=== PATIENT | male | born 1960 | race Caucasian/White ===

== ENCOUNTER 2016-10-30 09:19 | Emergency (ER) | payer OTHER, BC ==
[~2016-10-30 09:19] MED LIST: LOSARTAN POTASS50 MG PO; VITAMIN D-35000 UNIT PO
--- NOTE | 2016-10-30 10:30 | DIAGNOSTIC IMAGING REPORT ---
PROCEDURE: XR THORACIC SPINE 3 VIEWS INDICATION: TRAUMA/INJURY TECHNIQUE: Three views. COMPARISON: None. FINDINGS: Osseous structures and disc spaces are normal. No evidence of an acute process or fracture. IMPRESSION: 1. Negative thoracic spine.
--- NOTE | 2016-10-30 11:28 | DIAGNOSTIC IMAGING REPORT ---
PROCEDURE: XR WRIST MIN 3 VIEWS - LEFT INDICATION: TRAUMA/INJURY TECHNIQUE: Three views of the left wrist. COMPARISON: None. FINDINGS: There is a fracture of the triquetrum. This is only seen on the lateral view. This appears acute with sharp cortical margins. IMPRESSION: 1. Triquetral fracture left wrist 2. Results discussed with Dr. Mei at 11:20 a.m.
--- NOTE | 2016-10-30 11:33 | ED CLINICAL REPORT ---
Clinical Report - Physicians/Mid Levels [facility] [address] [place] [address] 10/30/2016 9:22 Patient: DENVER MIGUEL Time Seen: 09:27; initial patient contact. Arrived- By private vehicle. Historian- patient. HISTORY OF PRESENT ILLNESS Chief Complaint: FALL. Location of injuries- upper back and left wrist. The injury occurred last night. Occurred at work. Fell 2-3 feet while climbing and landed on a hard surface; slipped. The patient complains of mild pain. No blow to the head, neck pain or loss of consciousness. Not dazed. REVIEW OF SYSTEMS No numbness, dizziness, difficulty breathing, nausea or abdominal pain. No laceration, vomiting or urinary problems. He has had back pain but no pain on weight bearing. He has had mild joint pain with swelling, involving the left wrist. All systems otherwise negative, except as recorded above. PAST HISTORY Muscle Tear. Chronic lymphoid leukemia, disease. Hypertension. ADDITIONAL SURGERIES: Adenoidectomy. Cholecystectomy. Colonoscopy. Tonsillectomy. Medications: AmLODIPine Besylate Oral. Losartan Potassium Oral (Tablet 50 mg) 1 tablet, daily. Allergies: No Known Drug Allergy. SOCIAL HISTORY Current every day smoker. No alcohol use or drug use. ADDITIONAL NOTES The nursing notes have been reviewed. PHYSICAL EXAM Vital Signs: 10/30/2016 09:28 BP: 159/74. HR: 76. RR: 20. O2 saturation: 97%. Temp: 98.7 F. Pain level now: 8/10. Have been reviewed. Hypertensive. Heart rate normal. Respiratory rate normal. Temperature normal. Oxygen saturation normal. Appearance: Alert. Oriented X3. No acute distress. Head: Head non-tender. Neck: Painless ROM. Non-tender. CVS: Heart sounds normal. Rate normal. Rhythm normal. Respiratory: Breath sounds normal. Chest nontender. Abdomen: No visible injury. Soft and nontender. Bowel sounds normal. Back: Moderate vertebral point tenderness over the upper thoracic spine. Moderate vertebral tenderness in the right upper and left upper thoracic area. Skin: The patient has a single medium superficial abrasion on the back. Extremities: Dorsal left hand: moderate tenderness of the proximal aspect of the dorsal hand. Neurovascular intact distally. No erythema, swelling or deformity. No limitation of extension. Pelvis stable. No lower extremity edema. Neuro: Oriented X 3. No motor deficit. No sensory deficit. LABS, X-RAYS, AND EKG T-Spine X-rays: Normal anterior contour line and posterior contour line. No fracture present. No subluxation present. Soft tissues normal. No bony lesion. Spinous processes aligned. Normal disc spaces. Views: AP, lateral and swimmer's view. Technique: good. The X-rays were independently viewed by me, interpreted by the radiologist and discussed with the radiologist. Prior films were not available for comparison. Lt Wrist X-ray: (Triquetrium Fx). Views: AP, lateral and oblique. Technique: good. The X-rays were independently viewed by me, interpreted by the radiologist and contemporaneously by me and discussed with the radiologist. Prior films were not available for comparison. PROGRESS AND PROCEDURES Disposition: Discharged home in good and improved condition. Condition: good. CLINICAL IMPRESSION Closed displaced transverse and triquetrum fracture of the left wrist. No angulated fracture of the wrist. No fracture of the distal radius or ulna. Single contusion with abrasion to the posterior chest. INSTRUCTIONS Apply ice for 20 minutes four times a day until better. Don't apply ice directly to skin. Your Current Medications: CONTINUE TAKING THE FOLLOWING MEDICATIONS: AmLODIPine Besylate Oral. Losartan Potassium Oral : Tablet 50 mg, 1 tablet daily. Prescription Medications: Hydrocodone/APAP 5mg / 325mg: take 1 orally every 6 hours as needed for pain. Dispense fifteen (15). No refill. Follow-up: Blood pressure screening was not performed during this visit because the patient has an active diagnosis of hypertension. Follow-up with: [facility], , [address], [place], [id number] Follow up in about one day. Call for an appointment. (Electronically signed by Tonny Mei Dr. 10/31/2016 8:47)
--- NOTE | 2016-10-30 11:33 | ED CLINICAL REPORT ---
Clinical Report - Physicians/Mid Levels [facility] [address] [place] [address] 10/30/2016 9:22 Patient: DENVER MIGUEL Time Seen: 09:27; initial patient contact. Arrived- By private vehicle. Historian- patient. HISTORY OF PRESENT ILLNESS Chief Complaint: FALL. Location of injuries- upper back and left wrist. The injury occurred last night. Occurred at work. Fell 2-3 feet while climbing and landed on a hard surface; slipped. The patient complains of mild pain. No blow to the head, neck pain or loss of consciousness. Not dazed. REVIEW OF SYSTEMS No numbness, dizziness, difficulty breathing, nausea or abdominal pain. No laceration, vomiting or urinary problems. He has had back pain but no pain on weight bearing. He has had mild joint pain with swelling, involving the left wrist. All systems otherwise negative, except as recorded above. PAST HISTORY Muscle Tear. Chronic lymphoid leukemia, disease. Hypertension. ADDITIONAL SURGERIES: Adenoidectomy. Cholecystectomy. Colonoscopy. Tonsillectomy. Medications: AmLODIPine Besylate Oral. Losartan Potassium Oral (Tablet 50 mg) 1 tablet, daily. Allergies: No Known Drug Allergy. SOCIAL HISTORY Current every day smoker. No alcohol use or drug use. ADDITIONAL NOTES The nursing notes have been reviewed. PHYSICAL EXAM Vital Signs: 10/30/2016 09:28 BP: 159/74. HR: 76. RR: 20. O2 saturation: 97%. Temp: 98.7 F. Pain level now: 8/10. Have been reviewed. Hypertensive. Heart rate normal. Respiratory rate normal. Temperature normal. Oxygen saturation normal. Appearance: Alert. Oriented X3. No acute distress. Head: Head non-tender. Neck: Painless ROM. Non-tender. CVS: Heart sounds normal. Rate normal. Rhythm normal. Respiratory: Breath sounds normal. Chest nontender. Abdomen: No visible injury. Soft and nontender. Bowel sounds normal. Back: Moderate vertebral point tenderness over the upper thoracic spine. Moderate vertebral tenderness in the right upper and left upper thoracic area. Skin: The patient has a single medium superficial abrasion on the back. Extremities: Dorsal left hand: moderate tenderness of the proximal aspect of the dorsal hand. Neurovascular intact distally. No erythema, swelling or deformity. No limitation of extension. Pelvis stable. No lower extremity edema. Neuro: Oriented X 3. No motor deficit. No sensory deficit. LABS, X-RAYS, AND EKG T-Spine X-rays: Normal anterior contour line and posterior contour line. No fracture present. No subluxation present. Soft tissues normal. No bony lesion. Spinous processes aligned. Normal disc spaces. Views: AP, lateral and swimmer's view. Technique: good. The X-rays were independently viewed by me, interpreted by the radiologist and discussed with the radiologist. Prior films were not available for comparison. Lt Wrist X-ray: (Triquetrium Fx). Views: AP, lateral and oblique. Technique: good. The X-rays were independently viewed by me, interpreted by the radiologist and contemporaneously by me and discussed with the radiologist. Prior films were not available for comparison. PROGRESS AND PROCEDURES Disposition: Discharged home in good and improved condition. Condition: good. CLINICAL IMPRESSION Closed displaced transverse and triquetrum fracture of the left wrist. No angulated fracture of the wrist. No fracture of the distal radius or ulna. Single contusion with abrasion to the posterior chest. INSTRUCTIONS Apply ice for 20 minutes four times a day until better. Don't apply ice directly to skin. Your Current Medications: CONTINUE TAKING THE FOLLOWING MEDICATIONS: AmLODIPine Besylate Oral. Losartan Potassium Oral : Tablet 50 mg, 1 tablet daily. Prescription Medications: Hydrocodone/APAP 5mg / 325mg: take 1 orally every 6 hours as needed for pain. Dispense fifteen (15). No refill. Follow-up: Blood pressure screening was not performed during this visit because the patient has an active diagnosis of hypertension. Follow-up with: [facility], , [address], [place], [id number] Follow up in about one day. Call for an appointment. (Electronically signed by Tonny Mei Dr. 10/31/2016 8:47)
--- NOTE | 2016-10-30 11:34 | ED NURSING NOTES ---
Clinical Report - Nurses [facility] [address] [place] [address] 10/30/2016 9:22 Patient: DENVER MIGUEL TRIAGE Triage time 09:28. Acuity: LEVEL 3. Chief Complaint: FALL (2100 last night he fell 6' off of a caba, hit mid back on the steel caba on the way to the ground, then landed on his left wrist. (Prior left wrist injury). Denies head injury - wearing his hard hat.). SEPSIS SCREEN: Sepsis Screen. Negative (no infection suspected/documented). JANINE COMA SCORE: [place] Coma Scale: 15- eyes open spontaneously (4); best verbal response- oriented x 4 (5); best motor response- obeys commands (6). --09:35 Denver Galvez R.N. 09:28 10/30/16. BP: 159/74 (regular adult cuff) taken on the left arm, while sitting. HR: 76. RR: 20. O2 saturation: 97% on room air. Temp: 98.7 F (oral). Pain level now: 12/25. --09:35 Denver Galvez R.N. Weight: 110.2 kg stated. Height/Length: 73 inches Per Patient. BMI: 32.1. --09:33 Denver Galvez R.N. Medications Losartan Potassium Oral (Tablet 50 mg) 1 tablet, daily. --09:33 Denver Galvez R.N. AmLODIPine Besylate Oral. --09:33 Denver Galvez R.N. Allergies No Known Drug Allergy. --09:33 Denver Galvez R.N. History Arrived by private vehicle. Historian: patient. 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 (600mg last night & 400mg today, iced last night.). SOCIAL HX: Smoker- current status unknown (cigarette). Occasional alcohol use. No drug use. ABUSE ASSESSMENT: No report of abuse. --09:35 Denver Galvez R.N. PROBLEMS: Muscle Tear. Chronic lymphoid leukemia, disease. Hypertension. --09:33 Denver Galvez R.N. ADDITIONAL SURGERIES: Adenoidectomy. Cholecystectomy. Colonoscopy. Tonsillectomy. --09:33 Denver Galvez R.N. Interventions ID band on patient. To treatment room. --09:35 Denver Galvez R.N. PHYSICAL ASSESSMENT Ambulatory to room. GENERAL / NEURO / PSYCH: Alert. Oriented X 4. Appears in pain. HEENT: Pupils equal, round and reactive to light. Head non-tender. RESPIRATORY: No respiratory distress. Respirations not labored. Chest nontender. ( minimal bibasilar expiratory wheezes). CVS: Normal heart rate and rhythm. Pulses within normal limits. Capillary refill less than 2 seconds. GI / : Abdomen soft and nontender. EXTREMITIES: Extremities exhibit normal ROM. Neuro-vascular status intact to the extremity. SKIN: Skin is warm and dry. ( 2 linear abrasions from the spine across the left scapula to the left shoulder where he hit the caba during the fall). --09:41 Denver Galvez R.N. NURSING PROGRESS NOTES Patient gowned. Reassurance given. Two patient identifiers checked. Call light placed in reach. Side rails up x 1. Bed placed in lowest position. Brakes of bed on. Patient ready for evaluation- chart flagged. --09:41 Denver Galvez R.N. 10:00. ( Ice pack to his back.). --10:05 Denver Galvez R.N. 10:57 10/30/16. BP: 123/65. HR: 70. RR: 20. O2 saturation: 97% on room air. --10:58 Denver Galvez R.N. 11:38 10/30/16. Volar fiberglass upper extremity splint applied to left wrist by tech. Distal pulses intact, sensation intact and motor within normal limits. --11:38 Romeo Doan. DISPOSITION / DISCHARGE Departure time: 1142. Condition at departure: unchanged and stable. ( +CMS distal to the LUE splint.). No learning barriers present. Discharge instructions provided and reviewed with the patient. Reviewed warnings. Reviewed medication(s). Treatments reviewed. Patient verbalized understanding. Written instructions provided in Vietnamese. The patient was discharged by the physician. He was discharged home. He left the Emergency Department ambulatory and via private vehicle. Patient driving. --11:48 Denver Galvez R.N. 11:30 10/30/16. BP: 119/77. HR: 72. RR: 20. O2 saturation: 97% on room air. Temp: 98.7 F (oral). Pain level now: 11/24. --11:48 Denver Galvez R.N. Locked/Released at 10/30/2016 11:54 by Denver Galvez R.N.
--- NOTE | 2016-10-30 11:34 | ED NURSING NOTES ---
Clinical Report - Nurses [facility] [address] [place] [address] 10/30/2016 9:22 Patient: DENVER MIGUEL TRIAGE Triage time 09:28. Acuity: LEVEL 3. Chief Complaint: FALL (2100 last night he fell 6' off of a caba, hit mid back on the steel caba on the way to the ground, then landed on his left wrist. (Prior left wrist injury). Denies head injury - wearing his hard hat.). SEPSIS SCREEN: Sepsis Screen. Negative (no infection suspected/documented). JANINE COMA SCORE: [place] Coma Scale: 15- eyes open spontaneously (4); best verbal response- oriented x 4 (5); best motor response- obeys commands (6). --09:35 Denver Galvez R.N. 09:28 10/30/16. BP: 159/74 (regular adult cuff) taken on the left arm, while sitting. HR: 76. RR: 20. O2 saturation: 97% on room air. Temp: 98.7 F (oral). Pain level now: 12/25. --09:35 Denver Galvez R.N. Weight: 110.2 kg stated. Height/Length: 73 inches Per Patient. BMI: 32.1. --09:33 Denver Galvez R.N. Medications Losartan Potassium Oral (Tablet 50 mg) 1 tablet, daily. --09:33 Denver Galvez R.N. AmLODIPine Besylate Oral. --09:33 Denver Galvez R.N. Allergies No Known Drug Allergy. --09:33 Denver Galvez R.N. History Arrived by private vehicle. Historian: patient. 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 (600mg last night & 400mg today, iced last night.). SOCIAL HX: Smoker- current status unknown (cigarette). Occasional alcohol use. No drug use. ABUSE ASSESSMENT: No report of abuse. --09:35 Denver Galvez R.N. PROBLEMS: Muscle Tear. Chronic lymphoid leukemia, disease. Hypertension. --09:33 Denver Galvez R.N. ADDITIONAL SURGERIES: Adenoidectomy. Cholecystectomy. Colonoscopy. Tonsillectomy. --09:33 Denver Galvez R.N. Interventions ID band on patient. To treatment room. --09:35 Denver Galvez R.N. PHYSICAL ASSESSMENT Ambulatory to room. GENERAL / NEURO / PSYCH: Alert. Oriented X 4. Appears in pain. HEENT: Pupils equal, round and reactive to light. Head non-tender. RESPIRATORY: No respiratory distress. Respirations not labored. Chest nontender. ( minimal bibasilar expiratory wheezes). CVS: Normal heart rate and rhythm. Pulses within normal limits. Capillary refill less than 2 seconds. GI / : Abdomen soft and nontender. EXTREMITIES: Extremities exhibit normal ROM. Neuro-vascular status intact to the extremity. SKIN: Skin is warm and dry. ( 2 linear abrasions from the spine across the left scapula to the left shoulder where he hit the caba during the fall). --09:41 Denver Galvez R.N. NURSING PROGRESS NOTES Patient gowned. Reassurance given. Two patient identifiers checked. Call light placed in reach. Side rails up x 1. Bed placed in lowest position. Brakes of bed on. Patient ready for evaluation- chart flagged. --09:41 Denver Galvez R.N. 10:00. ( Ice pack to his back.). --10:05 Denver Galvez R.N. 10:57 10/30/16. BP: 123/65. HR: 70. RR: 20. O2 saturation: 97% on room air. --10:58 Denver Galvez R.N. 11:38 10/30/16. Volar fiberglass upper extremity splint applied to left wrist by tech. Distal pulses intact, sensation intact and motor within normal limits. --11:38 Romeo Doan. DISPOSITION / DISCHARGE Departure time: 1142. Condition at departure: unchanged and stable. ( +CMS distal to the LUE splint.). No learning barriers present. Discharge instructions provided and reviewed with the patient. Reviewed warnings. Reviewed medication(s). Treatments reviewed. Patient verbalized understanding. Written instructions provided in Divehi. The patient was discharged by the physician. He was discharged home. He left the Emergency Department ambulatory and via private vehicle. Patient driving. --11:48 Denver Galvez R.N. 11:30 10/30/16. BP: 119/77. HR: 72. RR: 20. O2 saturation: 97% on room air. Temp: 98.7 F (oral). Pain level now: 11/24. --11:48 Denver Galvez R.N. Locked/Released at 10/30/2016 11:54 by Denver Galvez R.N.
--- NOTE | 2016-10-30 11:34 | ED ORDER SUMMARY ---
..... Patient: DENVER MIGUEL OrderSheet [facility] VisitID: [id number] [place] [address] 56y, M Registration Date/Time: 10/30/2016 ORDER SHEET Weight: 110.2 kg (stated) Allergies: No Known Drug Allergy GENERAL ORDERS: Thoracic Spine 3V Urgent (09:56 10/30/2016 Jose Manuel Godfrey) (Ack 10:00 TBergley) (10:24 Rich R.N.) Wrist 3 or 4V Left Urgent (09:57 10/30/2016 Jose Manuel Godfrey) (Ack 10:00 TBergley) (10:24 Rich R.N.) Splint (UE) (Left) (Volar) (11:29 10/30/2016 Jose Manuel Godfrey) (11:39 [facility]) MEDICATION ORDERS: IV FLUIDS: ORDER SHEET NOTES: [Electronically signed by Denver Galvez R.N. (11:54 10/30/2016)] [Electronically signed by Tonny Mei Dr. (08:47 10/31/2016)] [Electronically locked/signed by Denver Galvez R.N. (11:54 10/30/2016)]
--- NOTE | 2016-10-30 11:34 | ED ORDER SUMMARY ---
..... Patient: DENVER MIGUEL OrderSheet [facility] VisitID: [id number] [place] [address] 56y, M Registration Date/Time: 10/30/2016 ORDER SHEET Weight: 110.2 kg (stated) Allergies: No Known Drug Allergy GENERAL ORDERS: Thoracic Spine 3V Urgent (09:56 10/30/2016 Jose Manuel Godfrey) (Ack 10:00 TBergley) (10:24 Rich R.N.) Wrist 3 or 4V Left Urgent (09:57 10/30/2016 Jose Manuel Godfrey) (Ack 10:00 TBergley) (10:24 Rich R.N.) Splint (UE) (Left) (Volar) (11:29 10/30/2016 Jose Manuel Godfrey) (11:39 [facility]) MEDICATION ORDERS: IV FLUIDS: ORDER SHEET NOTES: [Electronically signed by Denver Galvez R.N. (11:54 10/30/2016)] [Electronically signed by Tonny Mei Dr. (08:47 10/31/2016)] [Electronically locked/signed by Denver Galvez R.N. (11:54 10/30/2016)]
--- NOTE | 2016-10-31 08:47 | ED MED RECONCILIATION SUMMARY ---
Patient: DENVER MIGUEL Medication Reconciliation Report [facility] VisitID: [id number] [address] [place] [address] 56y, M Registration Date/Time: 10/30/2016 Weight: 110.2 kg Height/Length: 73 in. BMI: 32.1 ALLERGIES: No Known Drug Allergy The patient's Home Medications are listed below: CONTINUE TAKING THE FOLLOWING MEDICATIONS: AmLODIPine Besylate Oral Losartan Potassium Oral (50 mg) 1 tablet, daily The source(s) of the original Home Medication information: Not obtained. The following Medications were given to the patient in the Emergency Department: None. The following Medications were prescribed to the patient: Hydrocodone/APAP 5mg / 325mg: take 1 orally every 6 hours as needed for pain. Dispense fifteen (15). No refill. -- Tonny eMi Dr.
--- NOTE | 2016-10-31 08:47 | ED MED RECONCILIATION SUMMARY ---
Patient: DENVER MIGUEL Medication Reconciliation Report [facility] VisitID: [id number] [address] [place] [address] 56y, M Registration Date/Time: 10/30/2016 Weight: 110.2 kg Height/Length: 73 in. BMI: 32.1 ALLERGIES: No Known Drug Allergy The patient's Home Medications are listed below: CONTINUE TAKING THE FOLLOWING MEDICATIONS: AmLODIPine Besylate Oral Losartan Potassium Oral (50 mg) 1 tablet, daily The source(s) of the original Home Medication information: Not obtained. The following Medications were given to the patient in the Emergency Department: None. The following Medications were prescribed to the patient: Hydrocodone/APAP 5mg / 325mg: take 1 orally every 6 hours as needed for pain. Dispense fifteen (15). No refill. -- Tonny Mei Dr.
--- NOTE | 2016-10-31 08:47 | ED DISCHARGE INSTRUCTIONS ---
Patient: DENVER MIGUEL General Instructions [facility] VisitID: [id number] [address] [place] [address] 56y, M Registration Date/Time: 10/30/2016 Closed displaced transverse and triquetrum fracture of the left wrist. No angulated fracture of the wrist. No fracture of the distal radius or ulna. Single contusion with abrasion to the posterior chest. INSTRUCTIONS Apply ice for 20 minutes four times a day until better. Don't apply ice directly to skin. Your Current Medications: CONTINUE TAKING THE FOLLOWING MEDICATIONS: AmLODIPine Besylate Oral. Losartan Potassium Oral : Tablet 50 mg, 1 tablet daily. Prescription Medications: Hydrocodone/APAP 5mg / 325mg: take 1 orally every 6 hours as needed for pain. Dispense fifteen (15). No refill. Follow-up: Blood pressure screening was not performed during this visit because the patient has an active diagnosis of hypertension. Follow-up with: [facility], , [address], , [place], [address] Follow up in about one day. Call for an appointment. ADDITIONAL INFORMATION Contusion,Soft Tissue You have a CONTUSION, which is a bruise with swelling and some bleeding under the skin. There are no broken bones. This injury takes a few days to a few weeks to heal. Home Care: 1) Keep the injured part elevated to reduce pain and swelling. This is especially important during the first 48 hours. 2) Make an ice pack (ice cubes in a plastic bag, wrapped in a towel) and apply for 20 minutes every 1-2 hours the first day. Continue this 3-4 times a day until the pain and swelling goes away. 3) You may use acetaminophen (Tylenol) or ibuprofen (Motrin, Advil) to control pain, unless another pain medicine was prescribed. [ NOTE : If you have chronic liver or kidney disease or ever had a stomach ulcer or GI bleeding, talk with your doctor before using these medicines.] Follow Up with your doctor or this facility if you are not improving within the next THREE days. [NOTE: If X-rays were taken, they will be reviewed by a radiologist. You will be notified of any new findings that may affect your care.] Get Prompt Medical Attention if any of the following occur: -- Pain or swelling increases -- Injured arm or leg becomes cold, blue, numb or tingly -- Redness, warmth or drainage from the skin Fracture: Wrist (General) You have a fracture (break) of a bone in your wrist. This may be a small crack or chip in the bone; or a major break with the broken parts pushed out of position. Wrist fractures are treated with a splint or cast. They take about 4-6 weeks to heal. Severe injuries may require surgery. Home Care: Keep your arm elevated to reduce pain and swelling. When sitting or lying down elevate your arm above the level of your heart. You can do this by placing your arm on a pillow that rests on your chest or on a pillow at your side. This is most important during the first 48 hours after injury. Apply an ice pack (ice cubes in a plastic bag, wrapped in a towel) over the injured area for 20 minutes every 1-2 hours the first day. You can place the ice pack inside the sling and directly over the splint/cast. Continue with ice packs 3-4 times a day for the next two days, then as needed for the relief of pain and swelling. Keep the cast/splint completely dry at all times. Bathe with your cast/splint out of the water, protected with a large plastic bag, rubber-banded at the top end. If a fiberglass splint/cast gets wet, you can dry it with a hair-dryer. You may use acetaminophen (Tylenol) or ibuprofen (Motrin, Advil) to control pain, unless another pain medicine was prescribed. [NOTE: If you have chronic liver or kidney disease or ever had a stomach ulcer or GI bleeding, talk with your doctor before using these medicines.] Follow Up with your doctor in one week, or as advised by our staff, to be sure the bone is healing properly. If a splint was applied, it will be changed to a cast during your follow-up visit. [NOTE: Any X-rays taken will be reviewed by a radiologist. You will be notified if there are any new findings that may affect your care.] Get Prompt Medical Attention if any of the following occur: The plaster cast or splint becomes wet or soft The fiberglass cast or splint remains wet for more than 24 hours Increased tightness or pain under the cast or splint Fingers become swollen, cold, blue, numb or tingly Hydrocodone Bitartrate, Acetaminophen Oral tablet What is this medicine? ACETAMINOPHEN; HYDROCODONE (a set a PURNIMA sofia fen; ibis droe KOE done) is a pain reliever. It is used to treat mild to moderate pain. How should I use this medicine? Take this medicine by mouth. Swallow it with a full glass of water. Follow the directions on the prescription label. If the medicine upsets your stomach, take the medicine with food or milk. Do not take more than you are told to take. Talk to your client relations associate regarding the use of this medicine in children. This medicine is not approved for use in children. What side effects may I notice from receiving this medicine? Side effects that you should report to your doctor or health home care chaplain as soon as possible: allergic reactions like skin rash, itching or hives, swelling of the face, lips, or tongue breathing problems confusion feeling faint or lightheaded, falls stomach pain yellowing of the eyes or skin Side effects that usually do not require medical attention (report to your doctor or health home care chaplain if they continue or are bothersome): nausea, vomiting stomach upset What may interact with this medicine? alcohol antihistamines isoniazid medicines for depression, anxiety, or psychotic disturbances medicines for sleep muscle relaxants naltrexone narcotic medicines (opiates) for pain phenobarbital ritonavir tramadol What if I miss a dose? If you miss a dose, take it as soon as you can. If it is almost time for your next dose, take only that dose. Do not take double or extra doses. Where should I keep my medicine? Keep out of the reach of children. This medicine can be abused. Keep your medicine in a safe place to protect it from theft. Do not share this medicine with anyone. Selling or giving away this medicine is dangerous and against the law. Store at room temperature between 15 and 30 degrees C (59 and 86 degrees F). Protect from light. Keep container tightly closed. Throw away any unused medicine after the expiration date. Discard unused medicine and used packaging carefully. Pets and children can be harmed if they find used or lost packages. What should I tell my health care provider before I take this medicine? They need to know if you have any of these conditions: brain tumor Crohn's disease, inflammatory bowel disease, or ulcerative colitis drink more than 3 alcohol-containing drinks per day drug abuse or addiction head injury heart or circulation problems kidney disease or problems going to the bathroom liver disease lung disease, asthma, or breathing problems an unusual or allergic reaction to acetaminophen, hydrocodone, other opioid analgesics, other medicines, foods, dyes, or preservatives or trying to get breast-feeding What should I watch for while using this medicine? Tell your doctor or health home care chaplain if your pain does not go away, if it gets worse, or if you have new or a different type of pain. You may develop tolerance to the medicine. Tolerance means that you will need a higher dose of the medicine for pain relief. Tolerance is normal and is expected if you take the medicine for a long time. Do not suddenly stop taking your medicine because you may develop a severe reaction. Your body becomes used to the medicine. This does NOT mean you are addicted. Addiction is a behavior related to getting and using a drug for a non-medical reason. If you have pain, you have a medical reason to take pain medicine. Your doctor will tell you how much medicine to take. If your doctor wants you to stop the medicine, the dose will be slowly lowered over time to avoid any side effects. You may get drowsy or dizzy when you first start taking the medicine or change doses. Do not drive, use machinery, or do anything that may be dangerous until you know how the medicine affects you. Stand or sit up slowly. There are different types of narcotic medicines (opiates) for pain. If you take more than one type at the same time, you may have more side effects. Give your health care provider a list of all medicines you use. Your doctor will tell you how much medicine to take. Do not take more medicine than directed. Call emergency for help if you have problems breathing. The medicine will cause constipation. Try to have a bowel movement at least every 2 to 3 days. If you do not have a bowel movement for 3 days, call your doctor or health home care chaplain. Too much acetaminophen can be very dangerous. Do not take Tylenol (acetaminophen) or medicines that contain acetaminophen with this medicine. Many non-prescription medicines contain acetaminophen. Always read the labels carefully. You have been given the following additional information: Contusion, Soft Tissue Fracture, Wrist [General] Hydrocodone Bitartrate, Acetaminophen Oral tablet (Electronically signed by Tonny Mei Dr. 10/31/2016 8:47)
--- NOTE | 2016-10-31 08:47 | ED MAR SUMMARY ---
..... Medication Administration Record [facility] [address], [place] [id number] Patient: DENVER MIGUEL Visit ID: [id number] 56y, M Weight: 110.2 kg Height/Length: 73 in BMI: 32.1 ALLERGIES: No Known Drug Allergy
--- NOTE | 2016-10-31 08:47 | ED MAR SUMMARY ---
..... Medication Administration Record [facility] [address], [place] [id number] Patient: DENVER MIGUEL Visit ID: [id number] 56y, M Weight: 110.2 kg Height/Length: 73 in BMI: 32.1 ALLERGIES: No Known Drug Allergy
--- NOTE | 2016-10-31 08:47 | ED DISCHARGE INSTRUCTIONS ---
Patient: DENVER MIGUEL General Instructions [facility] VisitID: [id number] [address] [place] [address] 56y, M Registration Date/Time: 10/30/2016 Closed displaced transverse and triquetrum fracture of the left wrist. No angulated fracture of the wrist. No fracture of the distal radius or ulna. Single contusion with abrasion to the posterior chest. INSTRUCTIONS Apply ice for 20 minutes four times a day until better. Don't apply ice directly to skin. Your Current Medications: CONTINUE TAKING THE FOLLOWING MEDICATIONS: AmLODIPine Besylate Oral. Losartan Potassium Oral : Tablet 50 mg, 1 tablet daily. Prescription Medications: Hydrocodone/APAP 5mg / 325mg: take 1 orally every 6 hours as needed for pain. Dispense fifteen (15). No refill. Follow-up: Blood pressure screening was not performed during this visit because the patient has an active diagnosis of hypertension. Follow-up with: [facility], , [address], , [place], [address] Follow up in about one day. Call for an appointment. ADDITIONAL INFORMATION Contusion,Soft Tissue You have a CONTUSION, which is a bruise with swelling and some bleeding under the skin. There are no broken bones. This injury takes a few days to a few weeks to heal. Home Care: 1) Keep the injured part elevated to reduce pain and swelling. This is especially important during the first 48 hours. 2) Make an ice pack (ice cubes in a plastic bag, wrapped in a towel) and apply for 20 minutes every 1-2 hours the first day. Continue this 3-4 times a day until the pain and swelling goes away. 3) You may use acetaminophen (Tylenol) or ibuprofen (Motrin, Advil) to control pain, unless another pain medicine was prescribed. [ NOTE : If you have chronic liver or kidney disease or ever had a stomach ulcer or GI bleeding, talk with your doctor before using these medicines.] Follow Up with your doctor or this facility if you are not improving within the next THREE days. [NOTE: If X-rays were taken, they will be reviewed by a radiologist. You will be notified of any new findings that may affect your care.] Get Prompt Medical Attention if any of the following occur: -- Pain or swelling increases -- Injured arm or leg becomes cold, blue, numb or tingly -- Redness, warmth or drainage from the skin Fracture: Wrist (General) You have a fracture (break) of a bone in your wrist. This may be a small crack or chip in the bone; or a major break with the broken parts pushed out of position. Wrist fractures are treated with a splint or cast. They take about 4-6 weeks to heal. Severe injuries may require surgery. Home Care: Keep your arm elevated to reduce pain and swelling. When sitting or lying down elevate your arm above the level of your heart. You can do this by placing your arm on a pillow that rests on your chest or on a pillow at your side. This is most important during the first 48 hours after injury. Apply an ice pack (ice cubes in a plastic bag, wrapped in a towel) over the injured area for 20 minutes every 1-2 hours the first day. You can place the ice pack inside the sling and directly over the splint/cast. Continue with ice packs 3-4 times a day for the next two days, then as needed for the relief of pain and swelling. Keep the cast/splint completely dry at all times. Bathe with your cast/splint out of the water, protected with a large plastic bag, rubber-banded at the top end. If a fiberglass splint/cast gets wet, you can dry it with a hair-dryer. You may use acetaminophen (Tylenol) or ibuprofen (Motrin, Advil) to control pain, unless another pain medicine was prescribed. [NOTE: If you have chronic liver or kidney disease or ever had a stomach ulcer or GI bleeding, talk with your doctor before using these medicines.] Follow Up with your doctor in one week, or as advised by our staff, to be sure the bone is healing properly. If a splint was applied, it will be changed to a cast during your follow-up visit. [NOTE: Any X-rays taken will be reviewed by a radiologist. You will be notified if there are any new findings that may affect your care.] Get Prompt Medical Attention if any of the following occur: The plaster cast or splint becomes wet or soft The fiberglass cast or splint remains wet for more than 24 hours Increased tightness or pain under the cast or splint Fingers become swollen, cold, blue, numb or tingly Hydrocodone Bitartrate, Acetaminophen Oral tablet What is this medicine? ACETAMINOPHEN; HYDROCODONE (a set a PURNIMA sofia fen; ibis droe KOE done) is a pain reliever. It is used to treat mild to moderate pain. How should I use this medicine? Take this medicine by mouth. Swallow it with a full glass of water. Follow the directions on the prescription label. If the medicine upsets your stomach, take the medicine with food or milk. Do not take more than you are told to take. Talk to your supervisor dyer regarding the use of this medicine in children. This medicine is not approved for use in children. What side effects may I notice from receiving this medicine? Side effects that you should report to your doctor or health companion caregiver as soon as possible: allergic reactions like skin rash, itching or hives, swelling of the face, lips, or tongue breathing problems confusion feeling faint or lightheaded, falls stomach pain yellowing of the eyes or skin Side effects that usually do not require medical attention (report to your doctor or health companion caregiver if they continue or are bothersome): nausea, vomiting stomach upset What may interact with this medicine? alcohol antihistamines isoniazid medicines for depression, anxiety, or psychotic disturbances medicines for sleep muscle relaxants naltrexone narcotic medicines (opiates) for pain phenobarbital ritonavir tramadol What if I miss a dose? If you miss a dose, take it as soon as you can. If it is almost time for your next dose, take only that dose. Do not take double or extra doses. Where should I keep my medicine? Keep out of the reach of children. This medicine can be abused. Keep your medicine in a safe place to protect it from theft. Do not share this medicine with anyone. Selling or giving away this medicine is dangerous and against the law. Store at room temperature between 15 and 30 degrees C (59 and 86 degrees F). Protect from light. Keep container tightly closed. Throw away any unused medicine after the expiration date. Discard unused medicine and used packaging carefully. Pets and children can be harmed if they find used or lost packages. What should I tell my health care provider before I take this medicine? They need to know if you have any of these conditions: brain tumor Crohn's disease, inflammatory bowel disease, or ulcerative colitis drink more than 3 alcohol-containing drinks per day drug abuse or addiction head injury heart or circulation problems kidney disease or problems going to the bathroom liver disease lung disease, asthma, or breathing problems an unusual or allergic reaction to acetaminophen, hydrocodone, other opioid analgesics, other medicines, foods, dyes, or preservatives or trying to get breast-feeding What should I watch for while using this medicine? Tell your doctor or health companion caregiver if your pain does not go away, if it gets worse, or if you have new or a different type of pain. You may develop tolerance to the medicine. Tolerance means that you will need a higher dose of the medicine for pain relief. Tolerance is normal and is expected if you take the medicine for a long time. Do not suddenly stop taking your medicine because you may develop a severe reaction. Your body becomes used to the medicine. This does NOT mean you are addicted. Addiction is a behavior related to getting and using a drug for a non-medical reason. If you have pain, you have a medical reason to take pain medicine. Your doctor will tell you how much medicine to take. If your doctor wants you to stop the medicine, the dose will be slowly lowered over time to avoid any side effects. You may get drowsy or dizzy when you first start taking the medicine or change doses. Do not drive, use machinery, or do anything that may be dangerous until you know how the medicine affects you. Stand or sit up slowly. There are different types of narcotic medicines (opiates) for pain. If you take more than one type at the same time, you may have more side effects. Give your health care provider a list of all medicines you use. Your doctor will tell you how much medicine to take. Do not take more medicine than directed. Call emergency for help if you have problems breathing. The medicine will cause constipation. Try to have a bowel movement at least every 2 to 3 days. If you do not have a bowel movement for 3 days, call your doctor or health companion caregiver. Too much acetaminophen can be very dangerous. Do not take Tylenol (acetaminophen) or medicines that contain acetaminophen with this medicine. Many non-prescription medicines contain acetaminophen. Always read the labels carefully. You have been given the following additional information: Contusion, Soft Tissue Fracture, Wrist [General] Hydrocodone Bitartrate, Acetaminophen Oral tablet (Electronically signed by Tonny Mei Dr. 10/31/2016 8:47)
== END 2016-10-30 11:42 | disposition home or self-care (01) ==
LOC: ED SRH 09:19
DX: S62.112A Displaced fracture of triquetrum [cuneiform] bone, left wrist, initial encounter for closed fracture (principal); S20.221A Contusion of right back wall of thorax, initial encounter; W17.89XA Other fall from one level to another, initial encounter; Y93.89 Activity, other specified; Y99.0 Civilian activity done for income or pay; Y92.9 Unspecified place or not applicable; I10 Essential (primary) hypertension